=== PATIENT | male | born 1975 | race Caucasian/White ===

== ENCOUNTER 2024-03-16 16:04 | Inpatient (IN) | payer OTHER, SELFPAY ==
[2024-03-16 11:12] VITALS: BMI 24.0
[2024-03-16 11:14] VITALS: BP 132/83
--- NOTE | 2024-03-16 12:07 | ED.GENMED ---
History of Present Illness
General
Chief Complaint: Skin Problem
Source: patient
Time Seen by Provider: 03/16/24 11:55
History of Present Illness
History of Present Illness:
48yoM with a history of diet controlled diabetes presenting for evaluation of left great toe swelling and redness. Patient has had a callous to the bottom of his L great toe for many years. His callous fell off a few weeks ago and the wound has been
bleeding on and off. He has been treating his wound at home with bandages and hydrogen peroxide. He started with redness, swelling, and warmth to the toe 4 days ago. The redness is spreading and he now has red streaking up into his thigh. He also
reports fevers and chills with a Tmax of 101. He has been taking his son's leftover amoxicillin for the past few days without improvement. He does not check his blood sugars regularly and he is not currently on any medications for his diabetes.
Phy Exam
General Physical Exam
General Presentation: well appearing
General age: appears stated age
General Skin: warm and dry
General Habitus: normal
General Mental: alert
Cardiovascular Exam
Cardiovascular Exam: regular rate/rhythm
Pulmonary Exam
Pulmonary Exam: no respiratory distress
Skin Exam
Skin Exam: other (L great toe with circumferential erythema and warmth. There is a wound to the plantar aspect of the toe with malodor. No crepitus noted. Erythema extends up the foot with red streaking up to the left of the medial thigh. )
Psychiatric Exam
Psychiatric Exam: normal mood/affect
Course
Orders/Labs/Results
Orders:
Orders
03/16/24 Lunch
2200 calorie (18 carb) Diabetic
At Your Request: Full Participation
Does patient need a safe tray?: No
03/16/24 12:05
0.9% Sodium Chloride 1000 ml [Nss] 1,000 ml IV BOLUS
Cefepime HCl [Maxipime] 2,000 mg IV NOW STA
CR Foot - Left Min 3 Views Urgent
Comment:
Reason For Exam: Great toe wound, concern for osteomyelitis
03/16/24 12:09
CRP [C-Reactive Protein] Urgent
Complete Blood Count/With Diff Urgent
Comprehensive Metabolic Panel Urgent
ESR [Erythrocyte Sed Rate] Urgent
Lactate Level [Lactic Acid] Urgent
Blood Culture Urgent
KAT Source: Blood/Venous
Specimen Description:
03/16/24 12:17
Blood Culture Routine
KAT Source: Blood/Venous
Specimen Description:
03/16/24 12:19
Vancomycin [Vancocin] 2,000 mg 0.9% Sodium Chloride 500 ml [Nss] 500 ml IV NOW
03/16/24 15:50
Admit/Transfer Patient As Directed
Co-Sign Provider:
Level of Care: Inpatient admission
Assign to:: Medical/Surgical
Physician / Group: [facility]
Diagnosis: Diabetic foot infection
Reason for Hospitalization: see progress note
Expected length of stay greater than two midnights?: Yes
ELOS- Estimated Length of Stay in days: 4
I certify the patient meets the requirements for IP care: Yes
PRN Pain Medication Management As Directed
May give lesser potent ordered pain med per pt: Yes
preference::
Protocol:: Medication orders for pain may be administered in a
manner that supports deferring to patient preference
when the pt is:
- Requesting an ordered lesser potent pain medication.
Least to most potent pain medications are defined
as: acetaminophen < NSAID < tramadol < opioids
(morphine, oxycodone, hydromorphone).
- Requesting a lesser dose of the same medication IF
ORDERED.
- Requesting a less intrusive route of administration
if both routes are prescribed by the provider (PO <
IV).
03/16/24 15:51
Code Status As Directed
Resuscitation Status: Full Code
03/16/24 17:10
Acetaminophen [Tylenol] 650 mg PO Q4HPRN PRN
Dextrose 50%-Water [Dextrose 50% Syringe] 12.5 grams IV [id number] PRN
Glucagon [GlucaGen] 1 mg IM PRN PRN
Insulin Aspart Corrective Low [Novolog Flexpen-Low Resistance] See Protocol SC AC
Ketorolac [Toradol] 15 mg IV Q6HPRN PRN
03/16/24 17:10
PODIATRY CONSULT Routine
Consulting Provider: Lupe Hernadez
Was physician already notified: Yes
Reason for consult: Diabetic foot infection
WOUND/OSTOMY CONSULT Routine
Reason for Consult: Left diabetic foot infection
Wound/Abscess/Other Culture Routine
KAT Source: Toe
Specimen Description:
Comment: left big toe
MR Left Le Joint W W/o Routine
Comment:
Reason For Exam: Diabetic left foot infection
Recent pill cam endoscopy?: No
Activity As Directed
Activity Level: As Tolerated
Bedside Glucose Monitoring As Directed
Frequency: AC&HS
Additional Instructions:: Change to q6h if pt on TPN, tube feeding or not eating
I&O [Intake/ Output] As Directed
Frequency: q12h
DX Deep Vein Thrombosis Video Routine
03/16/24 18:00
Enoxaparin Sodium [Lovenox] 40 mg SC QPM
Piperacillin/Tazo 3.375 Gram [Zosyn] 3.375 gram in 50 ml IV Q6H
03/17/24 06:00
Glycohemoglobin (HgbA1c) IN AM
Abnormal Lab Results
03/16/24
12:09
WBC 14.9 H 10^3/uL
(4.8-10.8)
Plt Count 408 H 10^3/uL
(130-400)
Abs Immat Gran (auto) 0.1 H 10^3/uL
(0-0.05)
Absolute Neuts (auto) 11.0 H 10^3/uL
(1.4-6.5)
Absolute Monos (auto) 1.2 H 10^3/uL
(0.1-0.6)
Lymphocytes % 17.8 L %
(20.5-51.1)
ESR 43 H mm/hour
(0-20)
Chloride 97 L mmol/L
(98-107)
Glucose 205 H mg/dl
(70-99)
C-Reactive Protein 251.10 H mg/L
(0.0-10.00)
03/16/24 12:09
03/16/24 12:09
Vital Signs
Initial and Last Documented VS:
Initial Vital Signs
Temp Pulse Resp BP Pulse Ox
99.2 F 107 19 132/83 94
03/16/24 11:14 03/16/24 11:14 03/16/24 11:14 03/16/24 11:14 03/16/24 11:14
Last Documented Vital Signs
Temp Pulse Resp BP Pulse Ox
99.4 F 114 16 138/96 99
03/16/24 17:21 03/16/24 17:21 03/16/24 17:21 03/16/24 17:21 03/16/24 17:21
MDM/Problems Addressed
Differential Diagnosis Includes:
48yoM here with L great toe redness and swelling x 4 days. Associated with fevers and chills. Hx of diet controlled diabetes but patient does not check sugars regularly. He is afebrile and hemodynamically stable. He is well appearing in no distress.
There is erythema to the L great toe with a plantar wound. There is red streaking up the foot extending into the thigh. No crepitus noted. Differential diagnosis includes but is not limited to: cellulitis, lymphangitis, osteomyelitis, sepsis,
uncontrolled diabetes
Initial ED plan: Check CBC, CMP, lactate, ESR/CRP, blood cultures, and left foot x-rays. IV fluid bolus. IV cefepime and vancomycin for broad coverage.
*Critical Care Note
Total Time (30-74mins, 75-104mins- exclusive of procedures): Not Applicable
Update Note
Update Note:
Labs reveal a leukocytosis with a WBC of 14.9. Lactate normal. ESR/CRP elevated. Glucose 202. No evidence of osteomyelitis on x-rays. He was admitted for further evaluation and management.
ED Attending Note
-
Portions of this chart may have been created with voice recognition software.� Occasional wrong word or��sound alike� substitutions may have occurred due to the inherent limitations of voice recognition software.
Discharge Plan
Departure
Patient Disposition: Admit
Date of Disposition: 03/16/24
Time of Disposition: 14:12
Presentation/result/management discussed w/ accepting MD/DO: Hospitalist
Discharge Problem:
Diabetic infection of left foot
Interventions
Interventions:
*Risk Screen - Suicide Last Done: 03/16/24 12:23
*General Assessment Last Done: 03/16/24 12:23
*Neglect/Abuse Screening Last Done: 03/16/24 12:23
ED- Fall Risk Assessment Last Done: 03/16/24 12:23
*ED COVID-19 Vaccine History Last Done: 03/16/24 12:23
*Nursing Disposition Last Done: 03/16/24 16:40
ED-Skin Assessment Last Done: 03/16/24 12:23
Discharge Date and Time
Discharge Date/Time: 03/16/24 17:20
[2024-03-16] MEDS: MAXIPIME 2000 MG IV (12:15)
[2024-03-16] MEDS: NSS 1000 IV (12:16)
[2024-03-16 12:19] VITALS: BP 159/137
[2024-03-16 12:23] VITALS: BP 153/137
[2024-03-16 12:29] LABS: % Basophils 0.3 % (0-2); % Eosinophils 0.3 % (0-6); % Immature Granulocytes 0.4 % (0-0.5); % Lymphocytes 17.8 % (20.5-51.1); % Monocytes 7.7 % (1.7-9.3); % Neutrophils 73.5 % (42.2-75.2); Absolute Basophils 0.1 10^3/uL (0-0.2); Absolute Eosinophils 0.1 10^3/uL (0-0.7); Absolute Immature Granulocytes 0.1 10^3/uL (0-0.05); Absolute Lymphocytes 2.7 10^3/uL (1.2-3.4); Absolute Monocytes 1.2 10^3/uL (0.1-0.6); Hematocrit 40.6 % (39.0-52.0); Hemoglobin 14.1 g/dL (13.0-18.0); Mean Corp Hgb Conc. 34.7 g/dL (33.0-37.0); Mean Corpuscular Volume 86.4 fL (80.0-94.0); Mean Platelet Volume 9.2 fL (7.4-10.4); Nucleated Red Blood Cells % 0 % (-); Platelet Count 408 10^3/uL (130-400); Red Cell Dist. Width 12.4 % (11.5-14.5); White Blood Cell Count 14.9 10^3/uL (4.8-10.8)
[2024-03-16 12:42] LABS: Lactic Acid 0.9 mmol/L (0.7-2.0)
[2024-03-16 12:43] LABS: ALT (SGPT) 24 U/L (0-50); AST (SGOT) 24 U/L (17-59); Albumin 4.4 g/dl (3.5-5.0); Alkaline Phosphatase 79 U/L (38-126); Blood Urea Nitrogen 15 mg/dl (9-20); Calcium 9.6 mg/dl (8.4-10.2); Carbon Dioxide 28 mmol/L (22-30); Chloride 97 mmol/L (98-107); Estimated Creatinine Clearance > 125 ml/min; Glucose 205 mg/dl (70-99); Potassium 4.5 mmol/L (3.5-5.1); Sodium 138 mmol/L (135-145); Total Bilirubin 0.7 mg/dl (0.2-1.3); Total Protein 7.1 g/dl (6.3-8.2); eGFR > 60.00
[2024-03-16] MEDS: VANCOCIN 540 MG IV (13:02)
--- NOTE | 2024-03-16 13:16 | PHANOTE ---
med rec note- patient stated he had old amoxicillin bottle at home and took one capsules out of it for the foot infection.
[2024-03-16 14:16] LABS: Erythrocyte Sed Rate 43 mm/hour (0-20)
--- NOTE | 2024-03-16 15:57 | HPS.HSE ---
Family Physician
-
Family Physician: * NONE
Chief Complaint
-
Left big toe infection
History of Present Illness
Patient is diet controlled diabetic. Diagnosed 10 years ago. He states him hemoglobin A1c check was a year ago and it was high but he does not remember the number.
He thinks he has neuropathy in the feet up to the shins. Completely numb and few areas and at times depending on what he eats can get a shooting sensation in the feet.
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 .
He has a callus on his left toe which broke open couple of years ago. He was self treating with ointment and bandage and was opening on and off. In the last 6 months it was not healing as before.Then in the last few days he started to see it
getting worse.
On Friday he had rigors and chills. He felt very tired. He noted the left toe is more swollen red. He also saw redness going up to his groin. No nausea vomiting. With the chills and worsening left toe appearance he came to the ER.
He did not take any recent antibiotics. No known drug allergies.
Medical History
Past Medical History
Past Medical History: Reports NIDDM
Past Surgical History: Reports None
Social History
Tobacco: Non-smoker
Alcohol: None
Drug: Marijuana
Living: With Family
Family History
Family History: Diabetes (in his mother's side)
Allergies / Home Medications
Allergies reflects when Allergies were last updated in [facility].
Home Medications with original date entered in [facility]
Allergy/Medication List:
Allergies
Allergy/AdvReac Type Severity Reaction Status Date / Time
No Known Allergies Allergy Unverified 03/16/24 11:14
Home Medications
acetaminophen 325 mg tablet (Tylenol) 650 mg PO Q4HPRN PRN fever 03/16/24
Review of Systems
-
A 12 point ROS was completed and negative except as noted: Yes
Physical Exam
Vital Signs
Vital Signs
Temp Pulse Resp BP Pulse Ox
97.5 F 100 16 153/137 99
03/16/24 12:23 03/16/24 12:23 03/16/24 12:23 03/16/24 12:23 03/16/24 12:23
Physical Exam
General: No Apparent Distress
HEENT: Moist mucous membranes
Respiratory: Clear
Cardiac: S1/S2, Regular Rhythm and Tachycardia
GI: Soft, Non Tender and No Hepatosplenomegaly
Skin: Other (Left big toe is swollen, red with a open wound in the lateral aspect of big toe. Distal forefoot dorsally is also red and swollen ;red streaking going up the left leg medially)
Neuro: AO x 3 and No Motor Deficits
Psych: Calm
Laboratory Results
-
03/16/24 12:09
03/16/24 12:09
Laboratory Results
Lactic Acid 0.9 mmol/L (0.7-2.0) 03/16/24 12:09
Total Bilirubin 0.7 mg/dl (0.2-1.3) 03/16/24 12:09
AST 24 U/L (17-59) 03/16/24 12:09
ALT 24 U/L (0-50) 03/16/24 12:09
Alkaline Phosphatase 79 U/L (38-126) 03/16/24 12:09
Data Reviewed
-
Diagnostic Radiology: Report Reviewed by me (foot xray)
Lab Data: Labs Reviewed by me
Impression/Plan
-
Diabetic and left big toe and left foot infection. Septic by criteria-leukocytosis and tachycardia noted. Suspect poorly controlled diabetic. Diagnosed 10 years ago and not on any medication. Plain x-ray shows gas in the soft tissue of great
toe but no OM. Nontoxic looking at the current time.
Admit to hospital.
Check an MRI of left foot.
Start on empirical vancomycin and Zosyn.
Obtain wound and blood cultures.
Consult garment presser.
Diabetes mellitus type 2-currently diet controlled. My suspicion is poorly controlled diabetes. Await hemoglobin A1c. Start on sliding scale insulin. He has symptoms of neuropathy in both feet.
Elevated blood pressure-follow closely for any undiagnosed hypertension.
Full code
[2024-03-16 16:38] VITALS: BP 136/71
[2024-03-16 17:21] VITALS: BP 138/96; BMI 24.6
[2024-03-16 17:27] LABS: Glucose - Point of Care 328 mg/dl (70-99)
--- NOTE | 2024-03-16 17:36 | PHA.VAN.IN ---
Assessment
- Assessment
Renal Function: Unknown baseline
Concomitant Antimicrobials: ZOSYN
- Previous Dosing Experience
Previous Regimen: NONE
AUC Dosing Plan
- Dosing Variables
Dosing Weight (kg): 89.4
Dosing CrCl (ml/min): 100
Vd coefficient (L/kg): 0.7
- Empiric Dosing
Initial / Loading Dose: 2GM
Maintenance Regimen: 1250MG IV Q12H
Estimated AUC (mcg*h/mL): 487
Estimated Peak (mcg*h/mL): 30.7
Estimated Trough (mcg/ml): 12.3
Estimated Half Life (H): 7.9
Pharmacokinetics Vancomycin I
- -
Patient Age: 48
Patient Sex: Male
Vancomycin Day #: 1
Indication: Diabetic Foot (SEPSIS)
Requesting Provider: BENJI
Height / Weight:
Height 6 ft 3 in
Actual Weight 89.358 kg
Pertinent Past Medical History: DM; CHRONIC FOOT WOUND; NEUROPATHY
- Vital Signs / Lab Results
Temp Pulse Resp BP Pulse Ox
99.4 F 114 16 138/96 99
03/16/24 17:21 03/16/24 17:21 03/16/24 17:21 03/16/24 17:21 03/16/24 17:21
Lab Results - Hematology
03/16/24
12:09
WBC 14.9 H
Lab Results - Chemistry
03/16/24
12:09
BUN 15
Creatinine 0.7
Estimated Creat Clear > 125
Albumin 4.4
03/16/24
12:09
Lactic Acid 0.9
[2024-03-16] MEDS: TYLENOL 650 MG PO ×2 (17:52→22:39)
[2024-03-16] MEDS: ZOSYN 50 IV ×2 (17:53→23:04)
[2024-03-16] MEDS: LOVENOX 40 MG SC (17:57)
[2024-03-16] MEDS: NOVOLOG FLEXPEN-LOW RESISTANCE 4 UNITS SC (17:57)
[2024-03-16 21:29] LABS: Glucose - Point of Care 129 mg/dl (70-99)
[2024-03-16 22:44] VITALS: BP 117/81
[2024-03-17] MEDS: ZOSYN 50 IV ×3 (05:29→17:11)
[2024-03-17] MEDS: VANCOCIN 275 MG IV ×2 (06:07→17:53)
[2024-03-17 07:03] VITALS: BP 129/84
[2024-03-17 08:13] LABS: Glucose - Point of Care 142 mg/dl (70-99)
--- NOTE | 2024-03-17 08:20 | CON.MD ---
Consultation - Medical
-
48 year old male admitted through the ED with left great toe pain and swelling. History of plantar hallux ulceration which patient state he self treated. States it seemed to be healing over when about a month ago he pulled off loose skin from the
area. Since that time, the area became more swollen and red until ultimately he began to experience fever, chills and pain. He states he is a diet controlled diabetic but does not monitor blood glucose levels. He also has never seen a curtains and draperies salesperson.
PMH includes DM and not allergies noted.
On exam, pedal pulses are present bilaterally. Left foot with cellulitis extending from the great toe to the ankle. Plantar blister/ulcer involves the entire plantar surface of the hallux with soft tissue necrosis and malodor present, a well as
serous drainage. Patient is unresponsive to painful stimuli, likely due to diabetic neuropathy. Ulcer probes to deep tissue.
Radiographs show no evidence of bony destruction to indicate osteomyelitis. Air in soft tissue is present but this is associated with the open ulcer. On admission WBC 14.9 and blood glucose 328. HgbA1c pending.
Impression/Plan
-Left hallux infected diabetic ulcer with cellulitis.
Suspect bone involvement due to the extent of soft tissue infection
MRI pending and results will determine type of surgical intervention necessary
Discussed with patient that surgical debridement and even amputation may be needed to resolve the infection
Continue current antibiotic therapy. Patient states significant improvement in foot appearance and decreased pain since admission
-Uncontrolled DM with peripheral neuropathy
Await HgbA1c results
--- NOTE | 2024-03-17 08:59 | WOUNDNOTE ---
L GREAT TOE (DORSAL)
--- NOTE | 2024-03-17 09:00 | WOUNDNOTE ---
L PLANTAR HALLUX (SIDE OF)
--- NOTE | 2024-03-17 09:09 | WOUNDNOTE ---
[facility] RN note: Patient admitted with diabetic foot infection. 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
See H&P for complete history.
PMH: NIDDM, neuropathy, chronic L hallux callus.
Wound Location and type/assessment: Patient admitted with: infected R plantar hallux diabetic ulcer to subcutaneous layer or deeper. Moderate brown odorous drainage. Black necrotic odorous tissue with sloughing macerated skin. +Diffuse L great toe
edema and erythema. L dorsal forefoot red. +Bounding pedal pulse palpated. Patient stated he shoe size is 13. He stated he wears different types of shoes for work and that he does have slippers at home.
Appetite: good.
Pressure redistribution devices in place: [employer] Accumax. Patient moves self in bed.
Plan: L toe dressing changed. Heels elevated off bed with pillow. Assistant Pressman Dr. Hernadez managing wound. Clarified with Dr. Hernadez L heel weight bear only for now.
Care plan to be updated. Will follow peripherally as needed. Patient to follow up with landscape account manager.
[2024-03-17] MEDS: NOVOLOG FLEXPEN-LOW RESISTANCE SC (09:44)
--- NOTE | 2024-03-17 10:07 | PHA.VAN.FU ---
Addendum entered and electronically signed by Gela Jacobs Silas 03/17/24 10:53:
Agree with resident's assessment and plan.
Original Note:
Vancomycin Assessment / Plan
- Assessment
Renal Function: No New Labs Today
In the past 24 hrs, patient has been: Afebrile
Concomitant Antimicrobials: Piperacillin/Tazobactam
- Dosing Plan
Continue: Vanco 1250mg Q12H
- Monitoring Plan
No level(s) ordered at this time: Consider level in the next few days
- Follow Up
Pharmacy will continue to follow.
Vancomycin Follow UP
- -
Patient Age: 48
Patient Sex: Male
Vancomycin Day #: 2
Indication: Diabetic Foot (SEPSIS)
Requesting Provider: BENJI
Height / Weight:
Height 6 ft 3 in
Actual Weight 89.358 kg
Pertinent Past Medical History: DM; CHRONIC FOOT WOUND; NEUROPATHY
- Vital Signs / Lab Results
Temp Pulse Resp BP Pulse Ox
98.5 F 98 20 129/84 98
03/17/24 07:03 03/17/24 07:03 03/17/24 07:03 03/17/24 07:03 03/17/24 07:03
Lab Results - Hematology
03/16/24
12:09
WBC 14.9 H
Lab Results - Chemistry
03/16/24
12:09
BUN 15
Creatinine 0.7
Estimated Creat Clear > 125
Albumin 4.4
03/16/24
12:09
Lactic Acid 0.9
[2024-03-17 11:32] LABS: Glycohemoglobin (HgbA1c) 11.5 % (4.0-5.6)
[2024-03-17 11:52] LABS: Glucose - Point of Care 150 mg/dl (70-99)
[2024-03-17] MEDS: NOVOLOG FLEXPEN-LOW RESISTANCE 1 UNITS SC ×2 (11:56→17:11)
--- NOTE | 2024-03-17 12:11 | CM ---
Patient seen bedside, initial assessment completed. Patient resides with his girlfriend in a two story condo, about 20 steps to enter. Patient denies the use of DME, VN, or SNF. Patient confirms pharmacy [facility]. Patient does not have a PCP,
does not have medical insurance. Patient agreeable to assistance from [facility]. CM placed call to [facility] with [facility], will prescreen patient. CM will continue to follow for all discharge planning needs.
Plan; home no needs, [facility]
--- NOTE | 2024-03-17 14:58 | W.PN.HOSP.TC ---
Today's Communication/Plan
-
Continue with antibiotics
Start on Lantus. Consult diabetic Nurse practitioner.
Follow MRI foot
Assessment / Plan
Assessment / Plan
Diabetic left big toe and left foot soft tissue infection with cellulitis. Septic by criteria-leukocytosis and tachycardia noted. poorly controlled diabetic. Diagnosed 10 years ago and not on any medication. Plain x-ray shows gas in the soft
tissue of great toe but no OM.
Await MRI of left foot.
cw empirical vancomycin and Zosyn.
wound and blood cultures pending
Input from communications station manager noted - might need amputation/debridement depending on MRI foot.
Diabetes mellitus type 2-currently diet controlled. poorly controlled diabetes. Hemoglobin A1c 11.5. Start on Lantus at night. Blood sugars been under goal today. Continue sliding scale insulin. Counseled about nurse practitioner. He has
symptoms of neuropathy in both feet.
Elevated blood pressure-follow closely for any undiagnosed hypertension.Under goal
Full code
Total time spent on today's encounter was 52 minutes which included time spent in counseling the patient regarding diagnosis and treatment plan as listed above, goals of care, and symptom management. Case was discussed with nursing staff,
specialists. All labs and imaging personally reviewed by me. Remainder the time spent in detailed review of previous records, lab data, imaging, and other medical provider documentation.
Anticipated Discharge: > 48 hours
Subjective/Interval History
-
Date of Service: March 17, 2024
Feels ok
No fever
No chills
Objective Data
-
Vital Signs:
Vital Signs
Temp Pulse Resp BP Pulse Ox
98.5 F 98 20 129/84 98
03/17/24 07:03 03/17/24 07:03 03/17/24 07:03 03/17/24 07:03 03/17/24 07:03
Review of Systems
-
Respiratory: Denies Trouble Breathing
Cardiac: Denies Chest Pain
Abdomen/GI: Denies Nausea or Vomiting
Neuro: Denies Dizzy
Physical Exam
-
General: No Apparent Distress
HEENT: Moist Mucous Membranes
Respiratory: Non Labored Respirations; Negative Accessory Resp Muscle Use
Cardiac: Regular Rhythm and S1/S2
Musculoskeletal: Other (left toe and forefoot as yesterday)
Neuro: AO x 3
Psych: Calm
Data Reviewed
-
Labs: Labs Reviewed by me
[2024-03-17 15:11] VITALS: BP 141/88
[2024-03-17 15:12] VITALS: BMI 24.6
[2024-03-17] MEDS: TYLENOL 650 MG PO (15:32)
[2024-03-17 16:31] LABS: Glucose - Point of Care 163 mg/dl (70-99)
[2024-03-17] MEDS: LOVENOX 40 MG SC (17:11)
--- NOTE | 2024-03-17 19:36 | W.PN.UPDATE ---
Update Note
Progress Note Update
MRI of foot shows first IP joint effusion either reactive or from septic arthritis. Bone marrow edema of the proximal and distal phalanx premium service representative of early OA.
Wound cultures pending. HgbA1c 11.5. Currently with chills and low grade fever. last WBC 14.9. Pedal pulses are palpable bilaterally. Limited response to painful stimuli due to peripheral neuropathy.
Bedside debridement performed (excisional) of non viable tissue plantar toe. Wound extends to deep tissue but not directly to bone or joint but remains malodorous. Cellulitis now localized to the toe and first MTPJ. Early stage osteomyelitis may
respond to IV antibiotic therapy, but with the extent of plantar soft tissue damage and high probability of joint sepsis an amputation may still be necessary. Will evaluate clinically tomorrow. Discussed this with patient and his girlfriend who
was present at the time of evaluation. We also discussed the importance of tight blood glucose control for wound healing.
[2024-03-17 21:15] LABS: Glucose - Point of Care 163 mg/dl (70-99)
[2024-03-17] MEDS: LANTUS 0.12 UNITS SC (21:52)
[2024-03-17 23:35] VITALS: BP 127/82
[2024-03-18] MEDS: ZOSYN 50 IV ×5 (00:01→23:29)
[2024-03-18] MEDS: VANCOCIN 275 MG IV ×2 (06:21→17:33)
[2024-03-18 07:01] VITALS: BP 133/90
[2024-03-18 07:47] LABS: Glucose - Point of Care 112 mg/dl (70-99)
[2024-03-18] MEDS: NOVOLOG FLEXPEN-LOW RESISTANCE SC ×3 (07:50→16:48)
[2024-03-18 07:56] LABS: Hematocrit 35.1 % (39.0-52.0); Hemoglobin 12.3 g/dL (13.0-18.0); Mean Corpuscular Hgb 29.8 pg (27.0-31.0); Mean Platelet Volume 8.9 fL (7.4-10.4); Platelet Count 455 10^3/uL (130-400); Red Blood Cell Count 4.13 10^6/uL (4.70-6.10); Red Cell Dist. Width 12.7 % (11.5-14.5); White Blood Cell Count 12.4 10^3/uL (4.8-10.8)
--- NOTE | 2024-03-18 08:44 | PN.DE.MGMTRT ---
Insulin Management
- -
03/18/2024 Diabetes Management Consult
Patient admitted 03/16 with L great toe swelling. PMH type 2 diabetes diet controlled. Prior to admission was taking no medication. A1C on admission 11.5%, cr .7, eGFR > 60. L toe was debrided @ bedside by podiatry 03/17.
Patient is awake alert and oriented, able to discuss diabetes management. Girlfriend at bedside and supportive. Patient has no doctor or insurance.
Patient received 12 units lantus @ 03/17, fasting glucose today 112. Will add metformin 500 mg BID and glyburide 5 mg daily (first doses now) continue low corrective insulin and lantus.
Discussed with patient glucose monitor, due to cost recommended Reli-On glucose monitor from [facility], girlfriend will obtain. Patient states he has tested his glucose in the past and is comfortable testing.
Will follow.
Diabetes History
- -
Type of Diabetes: 2
Pre-Admission Diabetes Regimen
Lab Results
Hemoglobin A1c 11.5 % (4.0-5.6) H 03/17/24 05:50
Insulin Pump Settings
IP Diabetes Regimen
03/17/24 03/17/24 03/17/24
11:51 16:29 21:13
POC Glucose 150 H 163 H 163 H
03/18/24
07:46
POC Glucose 112 H
Meal type: Lunch
Meal type: Breakfast
Amount consumed: 100%
Amount consumed: 100%
Patient Education
--- NOTE | 2024-03-18 09:20 | PHA.VAN.FU ---
Vancomycin Assessment / Plan
- Assessment
Renal Function: No New Labs Today
Concomitant Antimicrobials: piperacillin/tazobactam
- Dosing Plan
Continue: Vanc 1250mg Q12H
- Monitoring Plan
No level(s) ordered at this time: consider levels in next few days
- Follow Up
Pharmacy will continue to follow.
Vancomycin Follow UP
- -
Patient Age: 48
Patient Sex: Male
Vancomycin Day #: 3
Indication: Diabetic Foot
Requesting Provider: Dr. Felder
Pertinent Antimicrobial Allergies:
NKDA
Height / Weight:
Height 6 ft 3 in
Actual Weight 89.358 kg
Pertinent Past Medical History: DM 2
- Vital Signs / Lab Results
Temp Pulse Resp BP Pulse Ox
99 F 88 20 133/90 98
03/18/24 07:01 03/18/24 07:01 03/18/24 07:01 03/18/24 07:01 03/18/24 07:01
Lab Results - Hematology
03/16/24 03/18/24
12:09 07:10
WBC 14.9 H 12.4 H
Lab Results - Chemistry
03/16/24
12:09
BUN 15
Creatinine 0.7
Estimated Creat Clear > 125
Albumin 4.4
03/16/24
12:09
Lactic Acid 0.9
Microbiology Results
03/16/24 12:17 Blood Culture - Preliminary
Blood/Venous No Growth in 24 hours- Final report to follow
03/16/24 12:09 Blood Culture - Preliminary
Blood/Venous No Growth in 24 hours- Final report to follow
03/16/24 18:20 Gram Stain - Preliminary
Toe
--- NOTE | 2024-03-18 09:46 | CM ---
CM reviewed chart, patient on IV antibiotics, may require amputation. Patient seen bedside with significant other, reports no needs to CM at this time. Patient reports he met with Suha from [facility] and will be completing the paperwork needed. CM
will continue to follow for all discharge planning needs.
Plan; will depend on further medical workup.
[2024-03-18] MEDS: GLUCOPHAGE 500 MG PO ×2 (11:02→16:49)
[2024-03-18] MEDS: MICRONASE 5 MG PO (11:02)
[2024-03-18 11:52] LABS: Glucose - Point of Care 110 mg/dl (70-99)
--- NOTE | 2024-03-18 14:09 | W.PN.POD ---
Today's Communication
Today's Communication
Improved appearance of wound and WBC trending down
Re evaluate tomorrow for possible surgical intervention
Assessment / Plan
-
Left hallux infected plantar ulcer
-Decreased edema and erythema since yesterday. No further malodor. Devitalized tissue excised from central wound. Probes to deep tissue
-Afebrile with WBC trending down to 12.4 today
-Radiographs negative for bone erosion. MRI shows moderate effusion at the IPJ and bone marrow edema of the distal and proximal phalanx indicative of early stage osteomyelitis.
-Blood cultures negative. Wound culture positive for Enterococcus species
-Discussed with patient that although his situation has improved, if the central plantar and dorsal areas do not respond, septic arthritis will be assumed. This with loss of viable soft tissue would lead to recommendation for amputation
-As patient has palpable pulses and excellent distal perfusion, will observe another day as improvement has continued. 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
Poorly controlled diabetes mellitus
-Discussed importance of blood glucose control. Patient has no insurance and will discuss this with red lead burner.
Subjective
Chief Complaint
Admitted with left great toe ulcer and cellulitis.
Subjective
Resting comfortably in bed with girlfriend present. No fever or chills and no pain in the foot or leg
Objective
Temp Pulse Resp BP Pulse Ox
99 F 88 20 133/90 98
03/18/24 07:01 03/18/24 07:01 03/18/24 07:01 03/18/24 07:01 03/18/24 07:01
03/18/24 07:10
03/16/24 12:09
Vital Signs and Lab results were reviewed.
Review of Systems
Review of Systems
Review of Systems: No Fever and Chills
Physical Exam
Physical Exam
Ulcer plantar with stable edges, no further malodor, base with some visible granulation. dorsal 1.5 cm ulcer at ipj dry with stable edges. No purulence noted. Cellulitis localized to the great toe only with decreased edema.
--- NOTE | 2024-03-18 15:05 | W.PN.HOSP.TC ---
Today's Communication/Plan
-
cw abx and wound care
Assessment / Plan
Assessment / Plan
Diabetic left big toe and left foot soft tissue infection with cellulitis. Septic by criteria-leukocytosis and tachycardia noted. poorly controlled diabetic. Diagnosed 10 years ago and not on any medication. Plain x-ray shows gas in the soft
tissue of great toe but no OM.
MRI of left foot noted and podiatry input appreciated. Pt had bed side I*D with improvement in odor,swelling, erythema. MRI shows moderate effusion at the IPJ and bone marrow edema of the distal and proximal phalanx indicative of early stage
osteomyelitis.
Pt doesnt want to go through long haul of wound treatments if there is no guarantee of cure ; he cant afford to go off of work. He is leaning to amputation if that provides him complete cure.
cw empirical vancomycin and Zosyn.
wound cultures noted.
BCX neg so far.
Diabetes mellitus type 2-currently diet controlled. poorly controlled diabetes. Hemoglobin A1c 11.5. cw Lantus at night and oral hypoglycemic agenst. Blood sugars beengood. Continue sliding scale insulin. He has symptoms of neuropathy in
both feet.
Elevated blood pressure-follow closely for any undiagnosed hypertension.Under goal
Full code
Anticipated Discharge: > 48 hours
Subjective/Interval History
-
Date of Service: March 18, 2024
No fever or chills
He says he had discussion with podiatry today and planning to go ahead with toe amputation
Objective Data
-
Labs:
Laboratory Results
03/18/24
07:10
WBC 12.4 H
Hgb 12.3 L
Hct 35.1 L
Plt Count 455 H
Vital Signs:
Vital Signs
Temp Pulse Resp BP Pulse Ox
99 F 88 20 133/90 98
03/18/24 07:01 03/18/24 07:01 03/18/24 07:01 03/18/24 07:01 03/18/24 07:01
I&O
03/17/24 03/18/24 03/19/24
06:59 06:59 06:59
Intake Total 1260 / 1260
Output Total 1200 / 1200
Balance 60 / 60
Review of Systems
-
Respiratory: Denies Trouble Breathing
Cardiac: Denies Chest Pain
Abdomen/GI: Denies Abdominal Pain, Nausea or Vomiting
Neuro: Denies Dizzy
Physical Exam
-
General: No Apparent Distress
HEENT: Moist Mucous Membranes
Respiratory: Clear to Auscultation
Cardiac: Regular Rhythm and S1/S2
Musculoskeletal: Other (left toe in dressing)
Psych: Calm
[2024-03-18 15:30] VITALS: BP 131/81
[2024-03-18 16:41] LABS: Glucose - Point of Care 136 mg/dl (70-99)
[2024-03-18] MEDS: LOVENOX 40 MG SC (16:49)
[2024-03-18 21:16] LABS: Glucose - Point of Care 72 mg/dl (70-99)
[2024-03-18] MEDS: MELATONIN 5 MG PO (21:43)
[2024-03-18 21:51] LABS: Glucose - Point of Care 78 mg/dl (70-99)
--- NOTE | 2024-03-18 21:55 | PTCARENOTE ---
Patient worried about low blood sugar of 72 since he said he runs higher. RN took blood sugar again to put patient at ease. Blood sugar of 78. Patient asymptomatic. Given apple juice per patient request due to him being NPO at midnight. DIONISIO lopez
held per FUEL CONVERSION TECHNICIAN order. Call brink is within reach.
[2024-03-18 23:00] VITALS: BP 112/68
[2024-03-19] VITALS (9 sets, daily range): BP systolic 123–138; BP diastolic 78–89
[2024-03-19] MEDS: TYLENOL 650 MG PO (00:10)
[2024-03-19] MEDS: ZOSYN 50 IV ×4 (05:43→22:36)
[2024-03-19] MEDS: VANCOCIN 275 MG IV ×2 (06:16→17:53)
[2024-03-19 06:24] LABS: Glucose - Point of Care 89 mg/dl (70-99)
--- NOTE | 2024-03-19 07:49 | PN.DE.MGMTRT ---
Insulin Management
- -
03/19/2024 Diabetes Management F/U:
48 year old male admitted with left great toe swelling. Patient has no doctor or insurance
PMH: T2DM- diet controlled. Was taking any medications LEGAL CONSULTANT. A1C on admission 11.5%, cr 0.7, eGFR > 60.
Pt s/p bedside left toe debridement by podiatry on 03/17.
Patient is awake alert and oriented, able to discuss diabetes management. States GF was able to get ReliOn meter from [employer].
Glucose stable and in range, premeal 110 to 136, FBG 89 this AM.
Will make no changes to current regimen: Lantus 12 units, Metformin 500 mg BID and glyburide 5 mg daily with low corrective insulin and Lantus.
Discussed with patient glucose monitor, due to cost recommended Reli-On glucose monitor from [employer], girlfriend will obtain. Patient states he has tested his glucose in the past and is comfortable testing.
Will follow.
Diabetes History
- -
Type of Diabetes: 2 requiring insulin
Pre-Admission Diabetes Regimen
Lab Results
Hemoglobin A1c 11.5 % (4.0-5.6) H 03/17/24 05:50
Insulin Pump Settings
IP Diabetes Regimen
03/18/24 03/18/24 03/18/24
11:51 16:40 21:15
POC Glucose 110 H 136 H 72
03/18/24 03/19/24
21:47 06:21
POC Glucose 78 89
Meal type: Lunch
Meal type: Breakfast
Amount consumed: 100%
Amount consumed: 100%
Patient Education
[2024-03-19] MEDS: NOVOLOG FLEXPEN-LOW RESISTANCE SC ×2 (09:04→12:49)
[2024-03-19] MEDS: MICRONASE PO (09:04)
[2024-03-19] MEDS: GLUCOPHAGE PO (09:04)
--- NOTE | 2024-03-19 09:35 | W.PN.HOSP.TC ---
Today's Communication/Plan
-
OR today for to amputation.
Continue with antibiotics.
Assessment / Plan
Assessment / Plan
Diabetic left big toe and left foot soft tissue infection with cellulitis. Septic by criteria-leukocytosis and tachycardia noted. poorly controlled diabetic. Diagnosed 10 years ago and not on any medication. Plain x-ray shows gas in the soft
tissue of great toe but no OM.
MRI of left foot noted and podiatry input appreciated. Pt had bed side I*D with improvement in odor,swelling, erythema. MRI shows moderate effusion at the IPJ and bone marrow edema of the distal and proximal phalanx indicative of early stage
osteomyelitis.
Pt doesnt want to go through long haul of wound treatments if there is no guarantee of cure ; he cant afford to go off of work. He is leaning to amputation if that provides him complete cure.
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
cw empirical vancomycin and Zosyn. Wound culture not yet finalized.
wound cultures noted.
BCX neg so far.
Diabetes mellitus type 2-currently diet controlled. poorly controlled diabetes. Hemoglobin A1c 11.5. cw Lantus at night and oral hypoglycemic agenst. Blood sugars are mostly under goal.. Continue sliding scale insulin. He has symptoms of
neuropathy in both feet. Based on her requirement of insulin and blood sugars may be able to come off of bedtime Lantus pretty soon.
Elevated blood pressure-follow closely for any undiagnosed hypertension.Under goal
Full code
Portions of this chart may have been created with voice recognition software. Occasional wrong word or 'sound alike' substitutions may have occurred due to the inherent limitations of voice recognition software.
Anticipated Discharge: Within 24 hours
Subjective/Interval History
-
Date of Service: March 19, 2024
No fever or chills.
Objective Data
-
Vital Signs:
Vital Signs
Temp Pulse Resp BP Pulse Ox
98 F 84 20 130/78 97
03/19/24 07:30 03/19/24 07:30 03/19/24 07:30 03/19/24 07:30 03/19/24 07:30
I&O
03/18/24 03/19/24 03/20/24
06:59 06:59 06:59
Intake Total 1260 / 1260 1934
Output Total 1200 / 1200
Balance 60 / 60 1934
Review of Systems
-
Respiratory: Denies Trouble Breathing
Cardiac: Denies Chest Pain or Palpitations
Abdomen/GI: Denies Abdominal Pain, Nausea or Vomiting
Neuro: Denies Dizzy or Headache
Physical Exam
-
General: Comfortable
Respiratory: Non Labored Respirations; Negative Accessory Resp Muscle Use
Cardiac: Regular Rhythm and S1/S2; Negative Tachycardic
GI: Soft
Neuro: AO x 3
Psych: Calm
--- NOTE | 2024-03-19 10:10 | CM ---
CM reviewed chart, patient for OR today for toe amputation. Patient seen resting bedside, reports no needs to CM at this time. CM will continue to follow for all discharge planning needs.
Plan; home no needs, HRSI pending.
--- NOTE | 2024-03-19 12:22 | PHA.VAN.FU ---
Vancomycin Assessment / Plan
- Assessment
Renal Function: No New Labs Today
Concomitant Antimicrobials: pipearcillin/tazobactam
- Dosing Plan
Continue: Vanc 1250mg Q12H
- Monitoring Plan
No level(s) ordered at this time: patient for OR today for amputation - consider in next few days
Monitoring Comments: BUN & SCR ordered per protocol for AM labs
- Follow Up
Pharmacy will continue to follow.
Vancomycin Follow UP
- -
Patient Age: 48
Patient Sex: Male
Vancomycin Day #: 4
Indication: Diabetic Foot
Requesting Provider: Dr. Felder
Pertinent Antimicrobial Allergies:
NKDA
Height / Weight:
Height 6 ft 3 in
Actual Weight 89.358 kg
Pertinent Past Medical History: DM 2
- Vital Signs / Lab Results
Temp Pulse Resp BP Pulse Ox
98 F 84 20 130/78 97
03/19/24 07:30 03/19/24 07:30 03/19/24 07:30 03/19/24 07:30 03/19/24 07:30
Lab Results - Hematology
03/16/24 03/18/24
12:09 07:10
WBC 14.9 H 12.4 H
Lab Results - Chemistry
03/16/24
12:09
BUN 15
Creatinine 0.7
Estimated Creat Clear > 125
Albumin 4.4
03/16/24
12:09
Lactic Acid 0.9
Microbiology Results
03/16/24 12:09 Blood Culture - Preliminary
Blood/Venous No Growth in 72 hours- Final report to follow
03/16/24 18:20 Wound Culture - Preliminary
Toe Klebsiella aerogenes
Enterococcus species
Gram Stain - Preliminary
03/16/24 12:17 Blood Culture - Preliminary
Blood/Venous No Growth in 48 hours- Final report to follow
[2024-03-19 12:50] LABS: Glucose - Point of Care 77 mg/dl (70-99)
[2024-03-19 13:24] LABS: Glucose - Point of Care 77 mg/dl (70-99)
--- NOTE | 2024-03-19 14:19 | W.PN.UPDATE ---
Update Note
Progress Note Update
Patient to OR today for left hallux amputation. Tolerated procedure and anesthesia without complication. Wound partially closed and packed with iodoform. Wound culture, bone culture, pathology including clean margin sent. Patient should remain
NWB until packing removed by me tomorrow.
[2024-03-19 14:22] LABS: Glucose - Point of Care 71 mg/dl (70-99)
[2024-03-19] MEDS: GLUCOPHAGE 500 MG PO (17:03)
[2024-03-19] MEDS: LOVENOX 40 MG SC (17:04)
[2024-03-19 17:59] LABS: Glucose - Point of Care 206 mg/dl (70-99)
[2024-03-19] MEDS: NOVOLOG FLEXPEN-LOW RESISTANCE 2 UNITS SC (17:59)
[2024-03-19 21:25] LABS: Glucose - Point of Care 228 mg/dl (70-99)
[2024-03-19] MEDS: LANTUS 0.12 UNITS SC (22:36)
[2024-03-20] MEDS: MELATONIN 5 MG PO ×2 (00:14→21:24)
[2024-03-20 03:44] VITALS: BP 137/87
[2024-03-20] MEDS: ZOSYN 50 IV ×4 (05:22→23:03)
[2024-03-20 05:59] LABS: Blood Urea Nitrogen 16 mg/dl (9-20); Estimated Creatinine Clearance > 125 ml/min
[2024-03-20] MEDS: VANCOCIN 275 MG IV (06:09)
[2024-03-20 07:02] LABS: Glucose - Point of Care 192 mg/dl (70-99)
[2024-03-20 07:45] VITALS: BP 128/82
--- NOTE | 2024-03-20 08:22 | PHA.VAN.FU ---
Vancomycin Assessment / Plan
- Assessment
Renal Function: Stable
WBC's are: Trending Down
In the past 24 hrs, patient has been: Afebrile
Concomitant Antimicrobials: ZOSYN
- Dosing Plan
Continue: 1250MG Q12H
- Monitoring Plan
Peak Level: 03/20@2100
Trough Level: 03/21 @0530
- Follow Up
Pharmacy will continue to follow.
Vancomycin Follow UP
- -
Patient Age: 48
Patient Sex: Male
Vancomycin Day #: 5
Indication: Diabetic Foot
Requesting Provider: Dr. Felder
Pertinent Antimicrobial Allergies:
NKDA
Height / Weight:
Height 6 ft 3 in
Actual Weight 89.358 kg
Pertinent Past Medical History: DM 2
- Vital Signs / Lab Results
Temp Pulse Resp BP Pulse Ox
98.2 F 80 14 128/82 97
03/20/24 07:45 03/20/24 07:45 03/20/24 07:45 03/20/24 07:45 03/20/24 07:45
Lab Results - Hematology
03/18/24
07:10
WBC 12.4 H
Lab Results - Chemistry
03/20/24
05:06
BUN 16
Creatinine 0.7
Estimated Creat Clear > 125
Microbiology Results
03/19/24 14:15 Gram Stain - Preliminary
Bone
03/19/24 14:15 Gram Stain - Preliminary
Toe
03/16/24 12:17 Blood Culture - Preliminary
Blood/Venous No Growth in 72 hours- Final report to follow
03/16/24 12:09 Blood Culture - Preliminary
Blood/Venous No Growth in 72 hours- Final report to follow
03/16/24 18:20 Wound Culture - Preliminary
Toe Klebsiella aerogenes
Enterococcus species
Gram Stain - Preliminary
[2024-03-20] MEDS: NOVOLOG FLEXPEN-LOW RESISTANCE 1 UNITS SC ×2 (09:01→12:49)
[2024-03-20] MEDS: MICRONASE 5 MG PO (09:02)
[2024-03-20] MEDS: GLUCOPHAGE 500 MG PO ×2 (09:02→17:27)
--- NOTE | 2024-03-20 09:25 | W.PN.HOSP.TC ---
Today's Communication/Plan
-
Continue with Zosyn. DC vancomycin. Consult ID.
DC planning.
Assessment / Plan
Assessment / Plan
Diabetic left big toe and left foot soft tissue infection with cellulitis. Septic by criteria-leukocytosis and tachycardia noted. poorly controlled diabetic. Diagnosed 10 years ago and not on any medication. Plain x-ray shows gas in the soft
tissue of great toe but no OM.
MRI of left foot noted and podiatry input appreciated. Pt had bed side I*D with improvement in odor,swelling, erythema. MRI shows moderate effusion at the IPJ and bone marrow edema of the distal and proximal phalanx indicative of early stage
osteomyelitis.
Pt doesnt want to go through long haul of wound treatments if there is no guarantee of cure ; he cant afford to go off of work. He is leaning to amputation if that provides him complete cure.
Neurologist discussion with patient noted-s/p left hallux amputation 03/19.
Superficial wound cultures noted. Wound cultures pending.
BCX neg so far.
Medicine. Continue with Zosyn.
Consult ID for home antibiotic choice
Diabetes mellitus type 2-currently diet controlled. poorly controlled diabetes. Hemoglobin A1c 11.5. cw Lantus at night and oral hypoglycemic agenst. Blood sugars are mostly under goal.. Continue sliding scale insulin. He has symptoms of
neuropathy in both feet. Based on her requirement of insulin and blood sugars may be able to come off of bedtime Lantus pretty soon.
Full code
Portions of this chart may have been created with voice recognition software. Occasional wrong word or 'sound alike' substitutions may have occurred due to the inherent limitations of voice recognition software.
Anticipated Discharge: 24 - 48 hours
Subjective/Interval History
-
Date of Service: March 20, 2024
No pain from the amputation site.
No fever or chills.
Objective Data
-
Labs:
Laboratory Results
03/20/24
05:06
BUN 16
Creatinine 0.7
Vital Signs:
Vital Signs
Temp Pulse Resp BP Pulse Ox
98.2 F 80 14 128/82 97
03/20/24 07:45 03/20/24 07:45 03/20/24 07:45 03/20/24 07:45 03/20/24 07:45
I&O
03/19/24 03/20/24 03/21/24
06:59 06:59 06:59
Intake Total 1934 870 / 870
Balance 1934 870 / 870
Review of Systems
-
Respiratory: Denies Trouble Breathing
Cardiac: Denies Chest Pain
Abdomen/GI: Denies Abdominal Pain, Nausea, Vomiting or Diarrhea
Neuro: Denies Dizzy
Physical Exam
-
Respiratory: Non Labored Respirations; Negative Accessory Resp Muscle Use
Cardiac: Regular Rhythm and S1/S2; Negative Tachycardic
Musculoskeletal: Other (left foot in dressing)
Neuro: AO x 3
Psych: Calm; Negative Confused
Data Reviewed
-
Labs: Labs Reviewed by me
--- NOTE | 2024-03-20 11:33 | W.PN.POD ---
Today's Communication
Today's Communication
POD #1 left hallux amputation
Await OR wound culture results
Assessment / Plan
-
Left hallux infected plantar ulcer
-Post op day #1 left hallux amputation
-Packing pulled and retention sutures in tact. No further purulence or malodor. No further soft tissue necrosis visible with wound edges stable
-Confident all infected bone was surgically debrided. Await OR wound culture results to determine outpatient antibiotic course.
-Allow WB with surgical shoe ordered
Poorly controlled diabetes mellitus
-Discussed importance of blood glucose control. Patient has no insurance and will discuss this with clinical unit educator.
Subjective
Chief Complaint
Patient admitted with left great toe infection
Subjective
Resting comfortably in bed with no pain
Objective
Temp Pulse Resp BP Pulse Ox
98.2 F 80 14 128/82 97
03/20/24 07:45 03/20/24 07:45 03/20/24 07:45 03/20/24 07:45 03/20/24 09:00
03/18/24 07:10
03/20/24 05:06
Vital Signs and Lab results were reviewed.
Physical Exam
Physical Exam
Dressing removed and packing pulled today. No purulence or malodor noted. Retention sutures in tact with wound edges viable. No soft tissue necrosis visible
[2024-03-20 11:40] LABS: Glucose - Point of Care 164 mg/dl (70-99)
--- NOTE | 2024-03-20 15:27 | CON.ID ---
Consultation
-
Date/Time Consultation Requested: 03/20/2024 0917
Date/Time Consultation Performed: 03/20/2024 1530
Requesting Provider: Dr. Felder
Performing Provider: Dr. Perez
Reason for Consultation: Left foot infection
Chief Complaint / Past History
History of Present Illness
Lloyd Medrano is a 48-year-old man with a significant past medical history of diabetes mellitus being evaluated at the request of Dr. Felder in regards to left foot infection. History is obtained from chart review, along with patient interview.
The patient presented to [facility] on 03/16/2024 secondary to left foot infection. According to history, he has had a chronic callus on his left toe which 'broke open' several years ago. He has been treating it over that time with ointment
and bandaging, with intermittent closing and opening of the wound. He reports that over the past 6 months it has not been healing as it had in the past and that it may be getting worse. Several days prior to admission he developed rigors and
chills and he felt overall quite tired. He also noted that his left toe was more swollen and erythematous with some redness going up his leg. No history of nausea or vomiting. Upon presentation to the hospital he was found to have a leukocytosis
of 14.9 K. MRI was performed of the area on 03/17 which revealed osteomyelitis throughout the proximal and distal phalanges of the left hallux and on 03/19, the patient underwent left hallux amputation. Prior cultures revealed the presence of
Klebsiella and Enterococcus (although IntraOp cultures are currently pending), and Infectious Diseases is asked to comment upon further antimicrobial management.
Past History
Additional Past Medical History:
DM (uncontrolled; A1c = 11.5)
Additional Past Surgical History:
Left hallux amputation
Allergy History:
No Known Allergies Allergy (Unverified 03/16/24 11:14)
Medications Reviewed: Yes
Current Antibiotics:
Zosyn
Vancomycin
Social History
Tobacco: Non-Smoker
Alcohol: None
Drug: Marijuana
Living: With Family
Employment: Employed
Family History
Family History: Not Pertinent
Review of Systems
Vital Signs
Temp Pulse Resp BP Pulse Ox
98.2 F 80 14 128/82 97
03/20/24 07:45 03/20/24 07:45 03/20/24 07:45 03/20/24 07:45 03/20/24 09:00
Physical Exam
Physical Exam
Constitutional: No Acute Distress, Well Developed, Comfortable and Non-toxic
Head: Normocephalic
Eyes: Pupils Equal, Pupils Round, No Conjunctival Hemorrhage and Sclera Anicteric
Oral: No Thrush and No Ulcers
Cardiovascular: Regular Rate and S1/S2; Negative S3/S4 or Murmur
Pulmonary: Clear; Negative Wheezes, Rales or Rhonchi
Gastrointestinal: Soft, Non Tender, Non Distended, Normal Bowel Sounds, No Rebound and No Guarding
Genito-Urinary: Negative Murry
Extremities: Negative Edema or Cyanosis
Wound: Other (Left hallux area dressed. No erythema extending up foot.)
Neurological: Awake, Alert and AO x 3
Psychological: Calm
Lab / Diagnostic Study Results
03/18/24 07:10
03/20/24 05:06
Abs Immat Gran (auto) 0.1 10^3/uL (0-0.05) H 03/16/24 12:09
Absolute Neuts (auto) 11.0 10^3/uL (1.4-6.5) H 03/16/24 12:09
Absolute Lymphs (auto) 2.7 10^3/uL (1.2-3.4) 03/16/24 12:09
Absolute Monos (auto) 1.2 10^3/uL (0.1-0.6) H 03/16/24 12:09
Absolute Basos (auto) 0.1 10^3/uL (0-0.2) 03/16/24 12:09
Immature Gran % 0.4 % (0-0.5) 03/16/24 12:09
Neutrophils % 73.5 % (42.2-75.2) 03/16/24 12:09
Lymphocytes % 17.8 % (20.5-51.1) L 03/16/24 12:09
Monocytes % 7.7 % (1.7-9.3) 03/16/24 12:09
Eosinophils % 0.3 % (0-6) 03/16/24 12:09
Basophils % 0.3 % (0-2) 03/16/24 12:09
ESR 43 mm/hour (0-20) H 03/16/24 12:09
Lactic Acid 0.9 mmol/L (0.7-2.0) 03/16/24 12:09
C-Reactive Protein 251.10 mg/L (0.0-10.00) H 03/16/24 12:09
Microbiology Results
Micro:
03/16/24 12:17 Blood Culture - Preliminary
Blood/Venous No Growth in 4 days- Final report to follow
03/16/24 12:09 Blood Culture - Preliminary
Blood/Venous No Growth in 4 days- Final report to follow
03/16/24 18:20 Wound Culture - Final
Toe Klebsiella aerogenes
Enterococcus faecalis
Gram Stain - Final
03/19/24 14:15 Anaerobic Culture - Preliminary
Toe Culture pending. Anaerobic cultures are examined after 3
days incubation. Additional information to follow.
03/19/24 14:15 Wound Culture - Preliminary
Toe No growth
Gram Stain - Preliminary
03/19/24 14:15 Anaerobic Culture - Preliminary
Bone Culture pending. Anaerobic cultures are examined after 3
days incubation. Additional information to follow.
03/19/24 14:15 Tissue Culture - Preliminary
Bone No Growth After 18-24 Hours
Gram Stain - Preliminary
Imaging:
03/19/2024 X-ray left foot: Post amputation of the great toe at the level of the base of the proximal phalanx. Expected postoperative changes of the soft tissues. Remainder of the bones show no abnormal focal lesions. No acute fractures. No radiopaque
foreign body. There is peripheral vascular calcification.
03/17/2024 MRI left lower extremity: First toe plantar lateral wound at the level of the interphalangeal joint. Moderate first interphalangeal joint effusion. Considerations would include a reactive joint effusion versus septic arthritis. Bone
marrow edema throughout the proximal and distal phalanges of the first toe, which may be reactive or sales representative consultant of the early changes of osteomyelitis in the absence of appreciable T1 hypointense marrow replacement or significant postcontrast
enhancement. Severe diabetic myopathy.
Assessment / Plan
Left hallux osteomyelitis; s/p amputation
Left foot cellulitis
DM (uncontrolled; A1c = 11.5)
Recommendations:
Wound cultures revealed growth of Klebsiella aerogenes and Enterococcus faecalis.
Discontinue further vancomycin
Continue with Zosyn pending further culture data (intraoperative cultures)
Await pathology results to assess for clean margins.
If no residual osteo, may be able to transition to an oral regimen in the next 24 to 48 hours.
[2024-03-20 15:40] VITALS: BP 129/80
[2024-03-20 17:03] LABS: Glucose - Point of Care 73 mg/dl (70-99)
[2024-03-20] MEDS: NOVOLOG FLEXPEN-LOW RESISTANCE SC (17:16)
[2024-03-20] MEDS: LOVENOX 40 MG SC (17:28)
[2024-03-20 21:10] LABS: Glucose - Point of Care 71 mg/dl (70-99)
[2024-03-20] MEDS: LANTUS SC (21:23)
[2024-03-20 23:50] VITALS: BP 118/78
[2024-03-21] MEDS: ZOSYN 50 IV ×3 (05:15→17:12)
[2024-03-21 07:05] LABS: Glucose - Point of Care 112 mg/dl (70-99)
[2024-03-21] MEDS: NOVOLOG FLEXPEN-LOW RESISTANCE SC ×3 (07:17→16:42)
[2024-03-21 07:45] VITALS: BP 136/86
[2024-03-21] MEDS: MICRONASE 5 MG PO (08:07)
[2024-03-21] MEDS: GLUCOPHAGE 500 MG PO ×2 (08:08→17:13)
--- NOTE | 2024-03-21 09:16 | W.PN.HOSP.TC ---
Today's Communication/Plan
-
CW Zosyn
DC planning
Assessment / Plan
Assessment / Plan
Diabetic left big toe and left foot soft tissue infection with cellulitis. Septic by criteria-leukocytosis and tachycardia noted. poorly controlled diabetic. Diagnosed 10 years ago and not on any medication. Plain x-ray shows gas in the soft
tissue of great toe but no OM.
MRI of left foot noted and podiatry input appreciated. Pt had bed side I*D with improvement in odor,swelling, erythema. MRI shows moderate effusion at the IPJ and bone marrow edema of the distal and proximal phalanx indicative of early stage
osteomyelitis.
Pt doesnt want to go through long haul of wound treatments if there is no guarantee of cure ; he cant afford to go off of work. He is leaning to amputation if that provides him complete cure.
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
Superficial wound cultures noted. Deep Wound cultures no growth.
Bone pathology pending.
Continue with Zosyn.
Appt ID input regarding abx choice
Diabetes mellitus type 2-currently diet controlled. poorly controlled diabetes. Hemoglobin A1c 11.5. cw Lantus at night and oral hypoglycemic agents. Blood sugars are mostly under goal.. Continue sliding scale insulin. He has symptoms of
neuropathy in both feet. Based on her requirement of insulin and blood sugars may be able to come off of bedtime Lantus pretty soon.
DC planning
Full code
Portions of this chart may have been created with voice recognition software. Occasional wrong word or 'sound alike' substitutions may have occurred due to the inherent limitations of voice recognition software.
Anticipated Discharge: Within 24 hours
Subjective/Interval History
-
Date of Service: March 21, 2024
not much pain from the amputation site.
No fever chills.
No nausea vomiting.
Objective Data
-
Vital Signs:
Vital Signs
Temp Pulse Resp BP Pulse Ox
98 F 70 16 136/86 99
03/21/24 07:45 03/21/24 07:45 03/21/24 07:45 03/21/24 07:45 03/21/24 07:45
I&O
03/20/24 03/21/24 03/22/24
06:59 06:59 06:59
Intake Total 870 / 870 240 / 240
Balance 870 / 870 240 / 240
Review of Systems
-
Respiratory: Denies Trouble Breathing
Cardiac: Denies Chest Pain
Abdomen/GI: Denies Abdominal Pain
Neuro: Denies Dizzy
Physical Exam
-
Respiratory: Non Labored Respirations; Negative Accessory Resp Muscle Use
Cardiac: Regular Rhythm and S1/S2
GI: Soft
Musculoskeletal: Other (left foot in dressing)
Neuro: AO x 3
Psych: Calm
--- NOTE | 2024-03-21 11:47 | CM ---
Addendum entered by Gretchen Gallardo 03/21/24 11:58:
TT to podiatry requesting clarification about wound care needs at discharge.
Original Note:
Patient seen at bedside, patient asking questions about wound care at home. Patient may need VN referral vs wound care pending medical treatment plan. Patient states that he does have help at home. Patient does indicated that he understands he is to
have PO antibiotics. CM will continue to follow for discharge planning needs.
Plan; home with VN vs follow up with wound care per physician recommendations
[2024-03-21 12:09] LABS: Glucose - Point of Care 86 mg/dl (70-99)
[2024-03-21 15:35] VITALS: BP 144/92
[2024-03-21 16:35] LABS: Glucose - Point of Care 80 mg/dl (70-99)
[2024-03-21] MEDS: LOVENOX 40 MG SC (17:12)
[2024-03-21] MEDS: MELATONIN 5 MG PO (20:44)
[2024-03-21 21:18] LABS: Glucose - Point of Care 117 mg/dl (70-99)
[2024-03-21] MEDS: LANTUS 0.12 UNITS SC (21:27)
[2024-03-21 23:13] VITALS: BP 134/85
[2024-03-22] MEDS: ZOSYN 50 IV ×2 (00:20→05:57)
[2024-03-22] MEDS: COLACE 100 MG PO ×3 (00:20→20:28)
--- NOTE | 2024-03-22 07:26 | PN.DE.MGMTRT ---
Insulin Management
- -
03/22/2024 Diabetes Management F/U:
48 year old male admitted with left great toe swelling due to Left hallux osteomyelitis; s/p amputation. Patient has no doctor or insurance
PMH: T2DM- diet controlled. 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 A1C on admission 11.5%, cr 0.7, eGFR > 60.
Pt s/p bedside left toe debridement by podiatry on 03/17, and POD # 2 s/p left hallux amputation.
Patient is awake alert and oriented, able to discuss diabetes management.
Glucose stable and in range, premeal 80 to 112, FBG 139 this AM.
Will make no changes to current regimen: Lantus 12 units, Metformin 500 mg BID and glyburide 5 mg daily with low corrective insulin.
Pt has ReliOn meter from [employer] at home and states he has tested his glucose in the past and is comfortable testing.
Will follow.
Diabetes History
- -
Type of Diabetes: 2 requiring insulin
Pre-Admission Diabetes Regimen
Lab Results
Hemoglobin A1c 11.5 % (4.0-5.6) H 03/17/24 05:50
Insulin Pump Settings
IP Diabetes Regimen
03/21/24 03/21/24 03/21/24
12:07 16:34 21:16
POC Glucose 86 80 117 H
Patient Education
[2024-03-22 07:40] VITALS: BP 141/92
[2024-03-22 07:50] LABS: Glucose - Point of Care 139 mg/dl (70-99)
[2024-03-22] MEDS: NOVOLOG FLEXPEN-LOW RESISTANCE SC ×3 (08:32→17:09)
--- NOTE | 2024-03-22 08:49 | W.PN.POD ---
Today's Communication
Today's Communication
Stable for discharge pending ID evaluation of intra operative culture results
Assessment / Plan
-
Left hallux infected plantar ulcer
-Post op day #2 left hallux amputation
-Retention sutures in tact. No further purulence or malodor. No further soft tissue necrosis visible with wound edges stable. Central open area granulating
-Confident all infected bone was surgically debrided. Await OR wound culture results to determine outpatient antibiotic course. Preliminary bone culture with no growth. Appreciate ID input
-Allow WB with surgical shoe ordered
Poorly controlled diabetes mellitus
-Discussed importance of blood glucose control. Patient has no insurance and will discuss this with agricultural extension educator.
Subjective
Objective
Temp Pulse Resp BP Pulse Ox
98.2 F 79 16 141/92 99
03/22/24 07:40 03/22/24 07:40 03/22/24 07:40 03/22/24 07:40 03/22/24 07:40
03/18/24 07:10
03/20/24 05:06
Vital Signs and Lab results were reviewed.
Physical Exam
Physical Exam
Dressing removed with bloody drainage only. No malodor or purulence. Retention sutures in tact. Central area left open is granulating. Wound edges stable. Edema and erythema resolved
[2024-03-22] MEDS: MICRONASE 5 MG PO (08:57)
[2024-03-22] MEDS: GLUCOPHAGE 500 MG PO ×2 (08:57→17:13)
[2024-03-22 12:08] LABS: Glucose - Point of Care 129 mg/dl (70-99)
--- NOTE | 2024-03-22 12:13 | W.PN.ID1 ---
Date of Service
Date of Service: March 22, 2024
Today's Communication
Narrow to cefazolin.
Assessment / Plan
Left hallux osteomyelitis; s/p amputation
Left foot cellulitis
DM (uncontrolled; A1c = 11.5)
Recommendations:
Wound cultures revealed growth of Klebsiella aerogenes and Enterococcus faecalis.
Intraoperative cultures revealed growth of Group C strep.
Narrow to cefazolin.
Await pathology results to assess for clean margins.
If no residual osteo, transition to oral keflex.
����������������������������������������������������������
Chief Complaint
-: Other (Left foot infection)
Subjective / Review of Systems
Review of Systems: No Fever and No Chills
Vital Signs / Physical Exam
Vital Signs
Vital Signs
Temp Pulse Resp BP Pulse Ox
98.2 F 79 16 141/92 98
03/22/24 07:40 03/22/24 07:40 03/22/24 07:40 03/22/24 07:40 03/22/24 10:41
Physical Exam
Constitutional: No Acute Distress, Comfortable and Non-toxic
Eyes: Sclera Anicteric
Cardiovascular: S1/S2; Negative S3/S4
Pulmonary: Non Labored
Extremities: Negative Edema
Wound: Other (Left foot dressed in Storm wrap. No erythema extending up leg.)
Neurological: Awake and Alert
Psychological: Calm
Objective Data
Lab Data
Lab Results
03/18/24 07:10
03/20/24 05:06
ESR 43 mm/hour (0-20) H 03/16/24 12:09
Estimated Creat Clear > 125 ml/min 03/20/24 05:06
Lactic Acid 0.9 mmol/L (0.7-2.0) 03/16/24 12:09
Total Bilirubin 0.7 mg/dl (0.2-1.3) 03/16/24 12:09
AST 24 U/L (17-59) 03/16/24 12:09
ALT 24 U/L (0-50) 03/16/24 12:09
Alkaline Phosphatase 79 U/L (38-126) 03/16/24 12:09
C-Reactive Protein 251.10 mg/L (0.0-10.00) H 03/16/24 12:09
Most recent labs reviewed.
Micro Results:
03/19/24 14:15 Anaerobic Culture - Preliminary
Toe Culture pending. Anaerobic cultures are examined after 3
days incubation. Additional information to follow.
03/19/24 14:15 Anaerobic Culture - Preliminary
Bone NO ANAEROBES ISOLATED
03/19/24 14:15 Wound Culture - Preliminary
Toe Group C Streptococcus
Gram Stain - Preliminary
03/19/24 14:15 Tissue Culture - Preliminary
Bone No Growth After 72 Hours
Gram Stain - Preliminary
03/16/24 12:17 Blood Culture - Final
Blood/Venous No Growth - Final Report
03/16/24 12:09 Blood Culture - Final
Blood/Venous No Growth - Final Report
03/16/24 18:20 Wound Culture - Final
Toe Klebsiella aerogenes
Enterococcus faecalis
Gram Stain - Final
Imaging:
03/19/2024 X-ray left foot: Post amputation of the great toe at the level of the base of the proximal phalanx. Expected postoperative changes of the soft tissues. Remainder of the bones show no abnormal focal lesions. No acute fractures. No radiopaque
foreign body. There is peripheral vascular calcification.
03/17/2024 MRI left lower extremity: First toe plantar lateral wound at the level of the interphalangeal joint. Moderate first interphalangeal joint effusion. Considerations would include a reactive joint effusion versus septic arthritis. Bone
marrow edema throughout the proximal and distal phalanges of the first toe, which may be reactive or assistance representative of the early changes of osteomyelitis in the absence of appreciable T1 hypointense marrow replacement or significant postcontrast
enhancement. Severe diabetic myopathy.
[2024-03-22] MEDS: ZOSYN IV (12:25)
--- NOTE | 2024-03-22 13:24 | W.PN.HOSP.TC ---
Today's Communication/Plan
-
await final cultures
switched to Cefazolin
ID recs
Assessment / Plan
Assessment / Plan
#Diabetic left big toe and left foot soft tissue infection with cellulitis.
#Septic by criteria-leukocytosis and tachycardia noted.
-poorly controlled diabetic. Diagnosed 10 years ago and not on any medication. Plain x-ray shows gas in the soft tissue of great toe but no OM.
-MRI of left foot noted and podiatry input appreciated. Pt had bed side I*D with improvement in odor,swelling, erythema. MRI shows moderate effusion at the IPJ and bone marrow edema of the distal and proximal phalanx indicative of early stage
osteomyelitis.
-s/p left hallux amputation 03/19.
-Wound cultures revealed growth of Klebsiella aerogenes and Enterococcus faecalis.
-Intraoperative cultures revealed growth of Group C strep.
-Await pathology results to assess for clean margins.
-If no residual osteo, transition to oral keflex.
-Continue with Cefazolin
-Appt ID input regarding abx choice
#Diabetes mellitus type 2-currently diet controlled. poorly controlled diabetes. Hemoglobin A1c 11.5. cw Lantus at night and oral hypoglycemic agents. Blood sugars are mostly under goal.. Continue sliding scale insulin.
#Full code
Anticipated Discharge: 24 - 48 hours
Subjective/Interval History
-
Date of Service: March 22, 2024
No acute events overnight
Objective Data
-
Vital Signs:
Vital Signs
Temp Pulse Resp BP Pulse Ox
98.2 F 79 16 141/92 98
03/22/24 07:40 03/22/24 07:40 03/22/24 07:40 03/22/24 07:40 03/22/24 10:41
I&O
03/21/24 03/22/24 03/23/24
06:59 06:59 06:59
Intake Total 240 / 240 960 / 960
Balance 240 / 240 960 / 960
Review of Systems
-
History Source: Patient
All other systems: Not reviewed unless documented
Physical Exam
-
Respiratory: Non Labored Respirations; Negative Accessory Resp Muscle Use
Cardiac: Regular Rhythm and S1/S2
GI: Soft
Musculoskeletal: Other (left foot in dressing)
Neuro: AO x 3
Psych: Calm
Data Reviewed
-
Diagnostic Radiology: Image personally visualized and interpreted and Report Reviewed by me
MRI: Report Reviewed by me
Labs: Labs Reviewed by me
[2024-03-22] MEDS: ANCEF 10 IV ×2 (13:51→21:46)
--- NOTE | 2024-03-22 14:23 | CM ---
Per patient he is for discharge to home and follow up in Podiatry office.
Plan; Home when stable.
[2024-03-22 15:43] VITALS: BP 146/90
[2024-03-22 16:33] LABS: Glucose - Point of Care 74 mg/dl (70-99)
[2024-03-22] MEDS: LOVENOX 40 MG SC (17:13)
[2024-03-22] MEDS: CITROMA 300 ML PO (20:20)
[2024-03-22 21:20] LABS: Glucose - Point of Care 87 mg/dl (70-99)
[2024-03-22] MEDS: LANTUS 0.12 UNITS SC (21:46)
[2024-03-22] MEDS: MELATONIN PO (21:47)
[2024-03-22 23:02] VITALS: BP 130/90
[2024-03-23] MEDS: ANCEF 10 IV ×3 (05:39→21:45)
[2024-03-23 07:35] VITALS: BP 145/97
--- NOTE | 2024-03-23 07:41 | PN.DE.MGMTRT ---
Insulin Management
- -
03/23/2024 Diabetes Management Follow up:
48 year old male admitted with left great toe swelling due to Left hallux osteomyelitis; s/p amputation. Patient has no doctor or insurance
PMH: T2DM- diet controlled. 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 A1C on admission 11.5%, cr 0.7, eGFR > 60.
Pt s/p bedside left toe debridement by podiatry on 03/17, and POD # 3 s/p left hallux amputation.
Patient is awake alert and oriented, able to discuss diabetes management.
Glucose stable and in range, premeal 74 to 139, FBG this AM 118.
Will make no changes to current regimen: Lantus 12 units, Metformin 500 mg BID and glyburide 5 mg daily with low corrective insulin.
Pt has ReliOn meter from [employer] at home and states he has tested his glucose in the past and is comfortable testing.
Will follow.
Diabetes History
- -
Type of Diabetes: 2
Pre-Admission Diabetes Regimen
Lab Results
Hemoglobin A1c 11.5 % (4.0-5.6) H 03/17/24 05:50
Insulin Pump Settings
IP Diabetes Regimen
03/22/24 03/22/24 03/22/24
07:48 12:07 16:32
POC Glucose 139 H 129 H 74
03/22/24
21:19
POC Glucose 87
Meal type: Lunch
Meal type: Breakfast
Amount consumed: 100%
Amount consumed: 100%
Patient Education
[2024-03-23 07:55] LABS: Glucose - Point of Care 118 mg/dl (70-99)
[2024-03-23 08:26] LABS: Hemoglobin 13.3 g/dL (13.0-18.0); Mean Corp Hgb Conc. 34.1 g/dL (33.0-37.0); Mean Corpuscular Hgb 29.1 pg (27.0-31.0); Mean Corpuscular Volume 85.3 fL (80.0-94.0); Mean Platelet Volume 8.3 fL (7.4-10.4); Platelet Count 662 10^3/uL (130-400); Red Blood Cell Count 4.57 10^6/uL (4.70-6.10); Red Cell Dist. Width 12.7 % (11.5-14.5); White Blood Cell Count 8.7 10^3/uL (4.8-10.8)
[2024-03-23] MEDS: NOVOLOG FLEXPEN-LOW RESISTANCE SC ×3 (08:31→17:38)
[2024-03-23] MEDS: COLACE PO ×3 (08:33→20:54)
[2024-03-23] MEDS: MICRONASE 5 MG PO (08:33)
[2024-03-23] MEDS: GLUCOPHAGE 500 MG PO ×2 (08:33→17:38)
[2024-03-23 08:55] LABS: ALT (SGPT) 59 U/L (0-50); AST (SGOT) 45 U/L (17-59); Albumin 4.3 g/dl (3.5-5.0); Alkaline Phosphatase 64 U/L (38-126); Blood Urea Nitrogen 18 mg/dl (9-20); Calcium 9.8 mg/dl (8.4-10.2); Carbon Dioxide 30 mmol/L (22-30); Chloride 101 mmol/L (98-107); Estimated Creatinine Clearance > 125 ml/min; Glucose 109 mg/dl (70-99); Potassium 5.4 mmol/L (3.5-5.1); Sodium 142 mmol/L (135-145); Total Bilirubin 0.4 mg/dl (0.2-1.3); eGFR > 60.00
[2024-03-23 11:39] LABS: Glucose - Point of Care 106 mg/dl (70-99)
[2024-03-23] MEDS: FLUSH (NSS) 2 FLUSH IV ×2 (13:18→21:49)
--- NOTE | 2024-03-23 13:48 | W.PN.HOSP.TC ---
Today's Communication/Plan
-
lokelma
abx, f/u path
monitor cbc
Assessment / Plan
Assessment / Plan
#Diabetic left big toe and left foot soft tissue infection with cellulitis.
#Septic by criteria-leukocytosis and tachycardia noted.
-poorly controlled diabetic. Diagnosed 10 years ago and not on any medication. Plain x-ray shows gas in the soft tissue of great toe but no OM.
-MRI of left foot noted and podiatry input appreciated. Pt had bed side I*D with improvement in odor,swelling, erythema. MRI shows moderate effusion at the IPJ and bone marrow edema of the distal and proximal phalanx indicative of early stage
osteomyelitis.
-s/p left hallux amputation 03/19.
-Wound cultures revealed growth of Klebsiella aerogenes and Enterococcus faecalis.
-Intraoperative cultures revealed growth of Group C strep.
-Await pathology results to assess for clean margins.
-If no residual osteo, transition to oral keflex.
-Continue with Cefazolin
-Appt ID input regarding abx choice
#Diabetes mellitus type 2-currently diet controlled. poorly controlled diabetes. Hemoglobin A1c 11.5. cw Lantus at night and oral hypoglycemic agents. Blood sugars are mostly under goal.. Continue sliding scale insulin.
#Hyperkalemia
-lokelma
#Thrombocytosis
-most likely 2/2 to acute infection
-ctm
#Full code
Anticipated Discharge: Within 24 hours
Subjective/Interval History
-
Date of Service: March 23, 2024
no acute events overnight
Objective Data
-
Labs:
Laboratory Results
03/23/24
07:48
WBC 8.7
Hgb 13.3
Hct 39.0
Plt Count 662 H D
Sodium 142
Potassium 5.4 H
Chloride 101
Carbon Dioxide 30
BUN 18
Creatinine 0.7
Glucose 109 H
Calcium 9.8
Total Bilirubin 0.4
AST 45
ALT 59 H
Alkaline Phosphatase 64
Vital Signs:
Vital Signs
Temp Pulse Resp BP Pulse Ox
97.8 F 84 16 145/97 99
03/23/24 07:35 03/23/24 07:35 03/23/24 07:35 03/23/24 07:35 03/23/24 07:35
I&O
03/22/24 03/23/24 03/24/24
06:59 06:59 06:59
Intake Total 960 / 960 960 / 960
Balance 960 / 960 960 / 960
Review of Systems
-
History Source: Patient
All other systems: Not reviewed unless documented
Physical Exam
-
Respiratory: Non Labored Respirations; Negative Accessory Resp Muscle Use
Cardiac: Regular Rhythm and S1/S2
GI: Soft
Musculoskeletal: Other (left foot in dressing)
Neuro: AO x 3
Psych: Calm
Data Reviewed
-
Diagnostic Radiology: Image personally visualized and interpreted and Report Reviewed by me
MRI: Report Reviewed by me
Labs: Labs Reviewed by me
[2024-03-23] MEDS: LOKELMA 10 GRAM PO (15:05)
[2024-03-23 15:15] VITALS: BP 125/88
[2024-03-23 16:39] LABS: Glucose - Point of Care 127 mg/dl (70-99)
[2024-03-23] MEDS: LOVENOX 40 MG SC (17:38)
[2024-03-23 21:09] LABS: Glucose - Point of Care 136 mg/dl (70-99)
[2024-03-23] MEDS: LANTUS 0.12 UNITS SC (21:46)
[2024-03-23] MEDS: MELATONIN PO (21:48)
[2024-03-23 23:47] VITALS: BP 111/85
[2024-03-24] MEDS: ANCEF 10 IV (05:37)
[2024-03-24] MEDS: FLUSH (NSS) 2 FLUSH IV (05:37)
[2024-03-24 07:40] VITALS: BP 131/89
[2024-03-24 07:42] LABS: Glucose - Point of Care 121 mg/dl (70-99)
[2024-03-24 08:12] LABS: Hematocrit 39.5 % (39.0-52.0); Hemoglobin 13.4 g/dL (13.0-18.0); Mean Corp Hgb Conc. 33.9 g/dL (33.0-37.0); Mean Corpuscular Volume 88.4 fL (80.0-94.0); Mean Platelet Volume 8.4 fL (7.4-10.4); Platelet Count 624 10^3/uL (130-400); Red Blood Cell Count 4.47 10^6/uL (4.70-6.10); Red Cell Dist. Width 12.6 % (11.5-14.5)
[2024-03-24 08:14] LABS: ALT (SGPT) 42 U/L (0-50); AST (SGOT) 27 U/L (17-59); Albumin 4.1 g/dl (3.5-5.0); Alkaline Phosphatase 56 U/L (38-126); Blood Urea Nitrogen 17 mg/dl (9-20); Calcium 9.6 mg/dl (8.4-10.2); Carbon Dioxide 28 mmol/L (22-30); Chloride 102 mmol/L (98-107); Estimated Creatinine Clearance > 125 ml/min; Glucose 142 mg/dl (70-99); Potassium 5.1 mmol/L (3.5-5.1); Sodium 141 mmol/L (135-145); Total Bilirubin 0.3 mg/dl (0.2-1.3); Total Protein 6.6 g/dl (6.3-8.2); eGFR > 60.00
--- NOTE | 2024-03-24 08:23 | PN.DE.MGMTRT ---
Insulin Management
- -
03/24/2024 Diabetes Management Follow up:
48 year old male admitted with left great toe swelling due to Left hallux osteomyelitis; s/p amputation. Patient has no doctor or insurance
PMH: T2DM- diet controlled. 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 A1C on admission 11.5%, cr 0.7, eGFR > 60.
Pt s/p bedside left toe debridement by podiatry on 03/17, and POD # 3 s/p left hallux amputation.
Patient is awake alert and oriented, able to discuss diabetes management. Anxious for discharge. Patient told nurse he could not afford medication. Explained to patient metformin is ~ 3 to 4$ and glyburide is ~5$. Lantus most likely if obtained
at [facility] will be the least expensive. He now states he can afford it. He states he just got a new job and in 3 months he should have insurance. In the meantime he cannot afford to see a primary care doctor. My number provided for follow up for
optimal diabetes control.
Glucose stable and in range, premeal 106 to 136, FBG this AM 121.
Will make no changes to current regimen: Lantus 12 units @ HS, Metformin 500 mg BID and glyburide 5 mg daily with low corrective insulin.
Pt has ReliOn meter from [facility] at home and states he has tested his glucose in the past and is comfortable testing.
For discharge
Diabetes History
- -
Type of Diabetes: 2
Pre-Admission Diabetes Regimen
03/23/24 03/24/24
07:48 07:10
Creatinine 0.7 0.7
Lab Results
Hemoglobin A1c 11.5 % (4.0-5.6) H 03/17/24 05:50
Insulin Pump Settings
IP Diabetes Regimen
03/23/24 03/23/24 03/23/24
07:48 11:38 16:37
Glucose 109 H
POC Glucose 106 H 127 H
03/23/24 03/24/24 03/24/24
21:07 07:10 07:41
Glucose 142 H
POC Glucose 136 H 121 H
Meal type: Dinner
Meal type: Lunch
Meal type: Lunch
Meal type: Breakfast
Amount consumed: 100%
Amount consumed: 100%
Amount consumed: 100%
Amount consumed: 100%
Patient Education
--- NOTE | 2024-03-24 08:31 | W.PN.POD ---
Today's Communication
Today's Communication
OK for discharge pending pathology results for clean margin bone and ID outpatient antibiotic plan
Assessment / Plan
-
Left hallux infected plantar ulcer
-Post op day #5 left hallux amputation
-Retention sutures in tact. Minimal drainage. Cellulitis and edema resolved
-Confident all infected bone was surgically debrided. Wound culture positive for group C strep. Preliminary bone culture with no growth. Await pathology for clean margin as per ID
-Allow WB with surgical shoe ordered
Poorly controlled diabetes mellitus
-Discussed importance of blood glucose control. Patient has no insurance and will discuss this with music educator.
Subjective
Objective
Temp Pulse Resp BP Pulse Ox
97.2 F 97 16 131/89 100
03/24/24 07:40 03/24/24 07:40 03/24/24 07:40 03/24/24 07:40 03/24/24 07:40
03/24/24 07:10
03/24/24 07:10
Vital Signs and Lab results were reviewed.
[2024-03-24] MEDS: NOVOLOG FLEXPEN-LOW RESISTANCE SC ×2 (09:09→12:26)
[2024-03-24] MEDS: COLACE PO (09:10)
[2024-03-24] MEDS: MICRONASE 5 MG PO (09:10)
[2024-03-24] MEDS: GLUCOPHAGE 500 MG PO (09:10)
[2024-03-24 11:30] VITALS: BP 128/88
--- NOTE | 2024-03-24 12:09 | W.PN.HOSP.TC ---
Addendum entered and electronically signed by Mack Henderson MD 03/24/24 16:42:
[id number]
Original Note:
Today's Communication/Plan
-
keflex x 5 days
insulin/dm regimen
f/u pcp, podiatry outpatient
bmp in 5 days
Assessment / Plan
Assessment / Plan
#Diabetic left big toe and left foot soft tissue infection with cellulitis.
#Septic by criteria-leukocytosis and tachycardia noted.
-poorly controlled diabetic. Diagnosed 10 years ago and not on any medication. Plain x-ray shows gas in the soft tissue of great toe but no OM.
-MRI of left foot noted and podiatry input appreciated. Pt had bed side I*D with improvement in odor,swelling, erythema. MRI shows moderate effusion at the IPJ and bone marrow edema of the distal and proximal phalanx indicative of early stage
osteomyelitis.
-s/p left hallux amputation 03/19.
-Wound cultures revealed growth of Klebsiella aerogenes and Enterococcus faecalis.
-Intraoperative cultures revealed growth of Group C strep.
-pathology: clean margins.
-No residual osteo: transition to oral keflex x 5 days
-Continue with Cefazolin
-Appt ID input regarding abx choice
#Diabetes mellitus type 2-currently diet controlled. poorly controlled diabetes. Hemoglobin A1c 11.5. cw Lantus at night and oral hypoglycemic agents. Blood sugars are mostly under goal.. F/u PCP outpatient
#Hyperkalemia
-lokelma
-f/u bmp outpatient
#Thrombocytosis
-most likely 2/2 to acute infection
-ctm
#Full code
More than 30 minutes spent in discharge including
Final examination of the patient
Summarizing hospital stay
Instructions for continuing care to all relevant caregivers
Preparation of discharge records, prescriptions, and referral forms
Total time spent (35 in minutes):
Anticipated Discharge: Today
Subjective/Interval History
-
Date of Service: March 24, 2024
No acute events, clean margins on path
Objective Data
-
Labs:
Laboratory Results
03/24/24
07:10
WBC 10.0
Hgb 13.4
Hct 39.5
Plt Count 624 H
Sodium 141
Potassium 5.1
Chloride 102
Carbon Dioxide 28
BUN 17
Creatinine 0.7
Glucose 142 H
Calcium 9.6
Total Bilirubin 0.3
AST 27
ALT 42
Alkaline Phosphatase 56
Vital Signs:
Vital Signs
Temp Pulse Resp BP Pulse Ox
97.2 F 97 16 131/89 100
03/24/24 07:40 03/24/24 07:40 03/24/24 07:40 03/24/24 07:40 03/24/24 09:05
I&O
03/23/24 03/24/24 03/25/24
06:59 06:59 06:59
Intake Total 960 / 960 1919
Balance 960 / 960 1919
Review of Systems
-
History Source: Patient
All other systems: Not reviewed unless documented
Data Reviewed
-
Diagnostic Radiology: Image personally visualized and interpreted and Report Reviewed by me
MRI: Report Reviewed by me
Labs: Labs Reviewed by me
[2024-03-24 12:19] LABS: Glucose - Point of Care 100 mg/dl (70-99)
--- NOTE | 2024-03-24 12:58 | CM ---
Chart reviewed and family independence case manager spoke with nursing clinical nurse educator, patient and physician and plan is to home and patient to follow up with [facility] for his medications after discharge, patient is aware that he will have to purchase his own
medications and patient is agreeable to doing this.
Plan; Home at discharge, patient to obtain prescriptions from [facility] and follow up with podiatry as outpatient.
--- NOTE | 2024-03-24 13:30 | W.PN.ID1 ---
Date of Service
Date of Service: March 24, 2024
Today's Communication
Transition to oral Keflex.
Assessment / Plan
Left hallux osteomyelitis; s/p amputation
Left foot cellulitis
DM (uncontrolled; A1c = 11.5)
Recommendations:
Wound cultures revealed growth of Klebsiella aerogenes and Enterococcus faecalis.
Intraoperative cultures revealed growth of Group C strep.
Proximal margin noted to be free of osteomyelitis.
Transition to oral Keflex for an additional 5 days of therapy.
Patient advised on need for close follow-up with Podiatry given underlying diabetes.
Patient will need close glucose monitoring for optimal wound healing.
����������������������������������������������������������
Chief Complaint
-: Other (Left foot infection)
Subjective / Review of Systems
Review of Systems: No Fever and No Chills
Vital Signs / Physical Exam
Vital Signs
Vital Signs
Temp Pulse Resp BP Pulse Ox
97.2 F 97 16 131/89 100
03/24/24 07:40 03/24/24 07:40 03/24/24 07:40 03/24/24 07:40 03/24/24 09:05
Physical Exam
Constitutional: No Acute Distress, Comfortable and Non-toxic
Eyes: Sclera Anicteric
Pulmonary: Non Labored
Gastrointestinal: Non Distended
Extremities: Negative Edema
Wound: Other (Left foot dressed in Storm wrap. No erythema extending up leg. No strikethrough on dressing.)
Neurological: Awake and Alert
Psychological: Calm
Objective Data
Lab Data
Lab Results
03/24/24 07:10
03/24/24 07:10
ESR 43 mm/hour (0-20) H 03/16/24 12:09
Estimated Creat Clear > 125 ml/min 03/24/24 07:10
Lactic Acid 0.9 mmol/L (0.7-2.0) 03/16/24 12:09
Total Bilirubin 0.3 mg/dl (0.2-1.3) 03/24/24 07:10
AST 27 U/L (17-59) 03/24/24 07:10
ALT 42 U/L (0-50) 03/24/24 07:10
Alkaline Phosphatase 56 U/L (38-126) 03/24/24 07:10
C-Reactive Protein 251.10 mg/L (0.0-10.00) H 03/16/24 12:09
Most recent labs reviewed.
Micro Results:
03/19/24 14:15 Wound Culture - Final
Toe Group C Streptococcus
Gram Stain - Final
03/19/24 14:15 Tissue Culture - Final
Bone No Growth After 72 Hours
Gram Stain - Final
03/19/24 14:15 Anaerobic Culture - Final
Bone NO ANAEROBES ISOLATED
03/19/24 14:15 Anaerobic Culture - Final
Toe NO ANAEROBES ISOLATED
03/16/24 12:17 Blood Culture - Final
Blood/Venous No Growth - Final Report
03/16/24 12:09 Blood Culture - Final
Blood/Venous No Growth - Final Report
03/16/24 18:20 Wound Culture - Final
Toe Klebsiella aerogenes
Enterococcus faecalis
Gram Stain - Final
Imaging:
03/19/2024 X-ray left foot: Post amputation of the great toe at the level of the base of the proximal phalanx. Expected postoperative changes of the soft tissues. Remainder of the bones show no abnormal focal lesions. No acute fractures. No radiopaque
foreign body. There is peripheral vascular calcification.
03/17/2024 MRI left lower extremity: First toe plantar lateral wound at the level of the interphalangeal joint. Moderate first interphalangeal joint effusion. Considerations would include a reactive joint effusion versus septic arthritis. Bone
marrow edema throughout the proximal and distal phalanges of the first toe, which may be reactive or technical support representative of the early changes of osteomyelitis in the absence of appreciable T1 hypointense marrow replacement or significant postcontrast
enhancement. Severe diabetic myopathy.
Pathology:
03/19/2024 left great toe, amputation: Chronic ulcer with gangrenous necrosis. Acute osteomyelitis seen.
03/19/2024 left great toe, bone, clean margin: No osteomyelitis seen
Care Review
Plan reviewed with: Physician (Hospitalist)
--- NOTE | 2024-03-25 10:58 | W.DS.TRANS ---
DC Summary - [employer]
-
Discharge Instructions:
Discharge Diagnosis/Procedures Left hallux osteomyelitis; s/p amputation
Left foot cellulitis
Diet Low Fat,Low Cholesterol
Activity As tolerated
Blood Work CBC, bmp in 5 days with pcp
Instructions:
Stand-Alone Forms:
Changes to Home Medications: Yes
Discharge Medications:
DC Medications w/original date entered in [facility]
acetaminophen 325 mg tablet (Tylenol) 650 mg PO Q4HPRN PRN fever 03/16/24
blood-glucose meter ([employer] All-In-One Meter kit) #1 ea 03/24/24
cephalexin 500 mg capsule 500 mg PO QID 5 days #20 caps 03/24/24
glyburide 5 mg tablet 5 mg PO DAILY #30 tabs 03/24/24
insulin glargine 100 unit/mL (3 mL) subcutaneous pen (Lantus Solostar U-100 Insulin) 12 unit (0.12 mL) SC HS #5 ea 03/24/24
metformin 500 mg tablet 500 mg PO BID@0800,1700 #60 tabs 03/24/24
pen needle, diabetic 32 gauge x 5/32' (BD Ultra-Fine Linsey Pen Needle) #100 ea 03/24/24
Home Medication Changes
blood-glucose meter ([employer] All-In-One Meter kit) #1 ea 03/24/24
cephalexin 500 mg capsule 500 mg PO QID 5 days #20 caps 03/24/24
glyburide 5 mg tablet 5 mg PO DAILY #30 tabs 03/24/24
insulin glargine 100 unit/mL (3 mL) subcutaneous pen (Lantus Solostar U-100 Insulin) 12 unit (0.12 mL) SC HS #5 ea 03/24/24
metformin 500 mg tablet 500 mg PO BID@0800,1700 #60 tabs 03/24/24
pen needle, diabetic 32 gauge x 5/32' (BD Ultra-Fine Linsey Pen Needle) #100 ea 03/24/24
Pending Results: No
== END 2024-03-24 13:48 | disposition home or self-care (01) | DRG 854 ==
LOC: 4 EAST ACU 16:04
PROVIDERS: Physician Assistant; ADMITTING PHYSICIAN Internal Medicine; ATTENDING PHYSICIAN Internal Medicine; CONSULT PHYSICIAN Internal Medicine Infectious Disease; CONSULT PHYSICIAN Podiatrist Foot & Ankle Surgery; EMERGENCY PHYSICIAN Emergency Medicine
PROC: 0Y6Q0Z1 Detachment at Left 1st Toe, High, Open Approach (ICD-10-PCS; 2024-03-17)
PROC: 0JBR0ZZ Excision of Left Foot Subcutaneous Tissue and Fascia, Open Approach (ICD-10-PCS; 2024-03-17)
DX: A41.9 Sepsis, unspecified organism (principal); I96 Gangrene, not elsewhere classified; M86.172 Other acute osteomyelitis, left ankle and foot; E11.621 Type 2 diabetes mellitus with foot ulcer; L97.521 Non-pressure chronic ulcer of other part of left foot limited to breakdown of skin; E11.42 Type 2 diabetes mellitus with diabetic polyneuropathy; L03.032 Cellulitis of left toe; B95.2 Enterococcus as the cause of diseases classified elsewhere; E11.69 Type 2 diabetes mellitus with other specified complication; B96.89 Other specified bacterial agents as the cause of diseases classified elsewhere; B95.4 Other streptococcus as the cause of diseases classified elsewhere; D75.838 Other thrombocytosis; E11.65 Type 2 diabetes mellitus with hyperglycemia; E87.5 Hyperkalemia; Z83.3 Family history of diabetes mellitus
CPT/HCPCS: 88304; 88305; 88311; 73620; 73630; 73723; 80053; 82565; 82962; 83036; 83605; 84520; 85025; 85027; 85652; 86140; 87040; 87070; 87075; 87077; 87147; 87176; 87186; 87205; 96361; 96374; 96375; 99284

== ENCOUNTER → 2024-11-02 09:41 | Outpatient (REF) | payer OTHER, SELFPAY | LOC: RAD 09:41 | PROVIDERS: ATTENDING PHYSICIAN Internal Medicine | DX: S90.222A Contusion of left lesser toe(s) with damage to nail, initial encounter (principal) | CPT/HCPCS: 73660 ==

== ENCOUNTER → 2025-06-20 10:51 | Outpatient (REF) | payer OTHER, SELFPAY | LOC: RAD 10:51 | PROVIDERS: ATTENDING PHYSICIAN Internal Medicine | DX: M25.552 Pain in left hip (principal) | CPT/HCPCS: 73502 ==